=== PATIENT | female | born 1985 | race African-American/Black ===

== ENCOUNTER → 2017-11-04 | Outpatient (CLI) | payer OTHER ==
--- NOTE | 2017-11-04 15:53 | Diagnostic Imaging Report ---
PROCEDURE:L-SPINE COMPLETE COMPARISON:None. INDICATIONS:LOW BACK PAIN FINDINGS: There are 5 lumbar-type vertebral bodies. There is trace scoliosis which may be positional. There is no rotational component. Alignment is maintained on lateral image. There are ununited transverse processes of L1. The vertebral body heights are symmetric morphology. There is mild disc space narrowing of L4-5 and L5-S1 with minimal endplate osteophytes. The facets are normally aligned. No pars defects or facet arthropathy. The sacroiliac joints are normal. Visualized bones of the hips are normal. The bowel gas pattern is unremarkable. CONCLUSION: Minimal degenerative changes of the lower lumbar spine. Other findings as described above. Dictated by: Shahid Ramsay M.D. on 11/04/2017 at 16:02 Electronically approved by: Shahid Ramsay M.D. on 11/04/2017 at 16:02
--- NOTE | 2017-11-04 15:55 | Diagnostic Imaging Report ---
PROCEDURE:SACRUM X-RAY TECHNIQUE:AP and lateral images of the sacrum obtained INDICATION:Low back pain radiating down left leg for 2 weeks COMPARISON:None. FINDINGS: The sacroiliac joints are patent and normal in morphology. There are small endplate osteophytes at L4-5 and L5-S1. The sacrum is intact. The neuroforamina are normal in morphology. No normalities the pubic symphysis or the visualized portions of the hips. There are no lytic or blastic lesions. CONCLUSION: Minimal endplate degenerative changes of the lower lumbar spine. No abnormalities of the sacrum or sacroiliac joints. Dictated by: Shahid Ramsay M.D. on 11/04/2017 at 16:04 Electronically approved by: Shahid Ramsay M.D. on 11/04/2017 at 16:04
== END ==
LOC: RAD 14:04
PROVIDERS: ATTEND Internal Medicine
DX: M47.817 Spondylosis without myelopathy or radiculopathy, lumbosacral region (principal)
CPT/HCPCS: 72110; 72220; 81025